=== PATIENT | female | born 1975 | race Hispanic/Latino ===

== ENCOUNTER 2018-06-10 22:57 | Emergency (ER) | payer MEDICARE ==
[2018-06-10 23:29] VITALS: BMI 32.8
--- NOTE | 2018-06-10 23:55 | OBHP ---
Datetime: 06/10/2018 23:48 IP Adm Impression: , intrauterine IP Admit Plan: Discharge home Admit Comment, IP Provider: @ 30.4 wks GA /co cramping on and off, denies any lof, vb, +Fm. pt reports urinary frequencybut has been constant throughtout the , no dysuira, urgency, blo od in urine. pt does reprots the episdoe started after straining for a bowel movement. pt dnies any f ever, chills, nause, ovmiting, cp, sob. pt dnies any recent travel, heavy lifiting, trauma, or recent interoucse. pt preorts her last viist with PMD was uncomplicated as iwht OB: x 2 FT largest was 8lb 6 ounes [employer]: Denies PMH: Hypoythoid, SVT PSH: Appendecotmy, Cholecystectomy, Hernia repair FHX: non contrbiur MEDS: Levothryoxine 100mcg daily, metroprolol just started last week by cardiolgist as per pot SHX: deneis etoh/tobaccod/rugs nKDA A/P @ 30.4 wks GA no evidence of labor f/u UA po hydration nst dc home f/u PMD Dr Perez 1 week, precaution given Pelvic Type - PN: Adequate Extremities - PN: Normal Abdomen - PN: Normal Back - PN: Normal Breast - PN: Not Done Lungs - PN: Normal Heart - PN: Normal Thyroid - PN: Not Done Neurologic - PN: Normal HEENT - PN: Normal General - PN: Normal FHR - Baseline A Provider: 135 Membranes, Provider: Intact Contraction Comments Provider: none Gestation - Est Wks by US: 30.4 EGA AdmitDate IP: 30.4 IP Chief Complaint: Uterine contractions NICHD Variability Prov Fetus A: Moderate 6-25bpm FHR Category Provider Fetus A: Category I NICHD Decel Fetus A IP Provider: None Dilatation, Provider: 0 Effacement, Provider: 0 Station, Provider: -3 Genitourinary Exam: Normal DTRs - PN: Normal
[2018-06-11 00:09] LABS: URINE BACTERIA OCC (<OCC); URINE BILIRUBIN NEGATIVE (NEGATIVE); URINE BLOOD 1+ (NEGATIVE); URINE CLARITY Hazy (Clear); URINE COLOR Yellow (YELLOW); URINE GLUCOSE (UA) NORMAL (Normal); URINE LEUKOCYTE ESTERASE TRACE Leu/uL (Negative); URINE PROTEIN NEGATIVE (NEGATIVE); URINE UROBILINOGEN NORMAL mg/dL (0.2-1.0)
[2018-06-11 04:48] VITALS: BP 117/68; PULSE 90; TEMP 98.2
== END 2018-06-11 00:30 | disposition home or self-care (01) ==
LOC: C.EROB 22:57
DX: O47.03 False labor before 37 completed weeks of gestation, third trimester (principal); Z3A.30 30 weeks gestation of pregnancy

== ENCOUNTER 2019-01-27 12:31 | Emergency (ER) | payer MEDICARE ==
[2019-01-27 12:31] VITALS: BMI 32.8
[2019-01-27 12:38] VITALS: O2SAT 97
[2019-01-27] MEDS ORDERED: Sodium Chloride 0.9% 1,000 ML IV ONE (12:55)
[2019-01-27] MEDS ORDERED: Sodium Chloride 0.9% 1,000 ML ONE (13:13)
--- NOTE | 2019-01-27 13:13 | C.PDOC ---
History Of Present Illness 43 year old male presents to ED with complaint of left-sided flank pain that began today. Patient describes the pain as sharp and constant. Patient has a past medical history of kidney stones. Patient denies fever and vomiting. Time Seen by Provider: 01/27/19 12:52 Chief Complaint (Nursing): Female Genitourinary History Per: Patient History/Exam Limitations: no limitations Onset/Duration Of Symptoms: Days (1), Persistent Current Symptoms Are (Timing): Still Present Severity: None Location Of Pain/Discomfort: Other (left flank) Radiation Of Pain To:: None Quality Of Discomfort: "Pain" Associated Symptoms: denies: Fever, Vomiting Exacerbating Factors: None Alleviating Factors: None Recent travel outside of the [place]: No Additional History Per: Patient Past Medical History Reviewed: Historical Data, Nursing Documentation, Vital Signs Vital Signs: Last Vital Signs Temp 98.7 F 01/27/19 12:36 Pulse 70 01/27/19 12:36 Resp 18 01/27/19 12:36 BP 136/78 01/27/19 12:36 Pulse Ox 97 01/27/19 12:36 - Medical History PMH: Anxiety, Bipolar Disorder, Depression, Hyperlipidemia, Hypothyroidism, Kidney Stones, Paranoia (pt states "people" are talking about her), Chronic Kidney Disease Comment Only: Hyperthyroidism (as per ER) Surgical History: Appendectomy, Cholecystectomy, Hernia Repair - [facility] INFLUENZA VACCINATION (09/22/13) OTHER GROUP THERAPY (05/28/13) PSYCHIAT DRUG THERAP NEC (05/28/13) VACCINATION NEC (09/22/13) Family History: States: Unknown Family Hx - Social History Hx Tobacco Use: No Hx Alcohol Use: No Hx Substance Use: No - Immunization History Hx Tetanus Toxoid Vaccination: No Hx Influenza Vaccination: No Hx Pneumococcal Vaccination: No Review Of Systems Constitutional: Negative for: Fever, Chills, Weakness Gastrointestinal: Positive for: Abdominal Pain (left flank). Negative for: Vomiting Genitourinary: Negative for: Dysuria, Hematuria, Vaginal Discharge, Vaginal Bleeding Neurological: Negative for: Weakness, Numbness, Dizziness Physical Exam - Physical Exam Appears: Well, No Acute Distress Skin: Normal Color, Warm, Dry Head: Atraumatic, Normacephalic Chest: Symmetrical, No Deformity Cardiovascular: Rhythm Regular, No Murmur Respiratory: No Accessory Muscle Use Gastrointestinal/Abdominal: Tenderness (left flank) Back: CVA Tenderness (left side) Neurological/Psych: Oriented x3, Normal Speech, Normal Cognition ED Course And Treatment - Laboratory Results Result Diagrams: 01/27/19 13:55 01/27/19 13:55 O2 Sat by Pulse Oximetry: 97 (in RA) - CT Scan/US Abdomen/Pelvis CT Other Rad Studies (CT/US): Interpreted By Me, Read By Radiologist CT/US Interpretation: IMPRESSION: Mild splenomegaly. Cholecystectomy. Urinary bladder incompletely distended which in part accounts for thick-walled appearance however correlation with urinalysis recommended to exclude cystitis. Punctate calcification upper pole left kidney with no evidence of hydronephrosis Medical Decision Making Medical Decision Making: Impression: 43 year old with left-sided flank pain Plan: Abdomen/ Pelvis CT ordered for patient Labs ordered with UA and urine culture Patient given IV fluids, Toradol IVP,and Zofran IVP 4:00PM: * Pain resolved and CT normal. Abdomen non tender. Patient denies any pain at th is time. Care instructions advised. Return if symptoms persist or worsen. Disposition Counseled Patient/Family Regarding: Studies Performed, Diagnosis, Need For Followup, Rx Given - Disposition Referrals: Maicol Lazo MD [Staff Provider] - Disposition: HOME/ ROUTINE Disposition Time: 16:00 Condition: STABLE Prescriptions: Ibuprofen [Motrin] 600 mg PO TID #20 tab Instructions: Flank Pain (DC) Forms: [facility] (Citizen [place]) - POA Present On Arrival: None - Clinical Impression Clinical Impression: Flank pain - Scribe Statement The provider has reviewed the documentation as recorded by the Scribe (Joanne Luna) All medical record entries made by the Scribe were at my direction and personally dictated by me. I have reviewed the chart and agree that the record accurately reflects my personal performance of the history, physical exam, medical decision making, and the department course for this patient. I have also personally directed, reviewed, and agree with the discharge instructions and disposition.
[2019-01-27 13:58] LABS: BASO % 0.7 % (0.0-2.0); EOS % 0.6 % (0.0-4.0); LYMPH # 1.7 K/uL (1.0-4.3); LYMPH % 23.3 % (20.0-40.0); MEAN CELL VOLUME 87.2 fL (81.0-99.0); MEAN CORPUSCULAR HEMOGLOBIN 28.9 pg (27.0-31.0); MEAN CORPUSCULAR HGB CONC 33.2 g/dL (33.0-37.0); MEAN PLATELET VOLUME 9.5 fL (7.2-11.7); MONO # 0.4 K/uL (0.0-0.8); MONO % 5.8 % (0.0-10.0); NEUT % 69.6 % (50.0-75.0); NRBC % 0.1 % (0.0-2.0); RBC 4.49 Mil/uL (3.80-5.20); RED CELL DISTRIBUTION WIDTH 12.9 % (11.5-14.5); WHITE BLOOD COUNT 7.1 K/uL (4.8-10.8)
[2019-01-27 14:10] LABS: SQUAMOUS EPITHIAL 6 /hpf (0-5); URINE BACTERIA RARE (<OCC); URINE BILIRUBIN NEGATIVE (NEGATIVE); URINE BLOOD NEGATIVE (NEGATIVE); URINE CLARITY Hazy (Clear); URINE COLOR Yellow (YELLOW); URINE GLUCOSE (UA) NORMAL (Normal); URINE LEUKOCYTE ESTERASE NEG Leu/uL (Negative); URINE PROTEIN NEGATIVE (NEGATIVE); URINE UROBILINOGEN NORMAL mg/dL (0.2-1.0)
[2019-01-27 14:13] LABS: ALB/GLOB RATIO 1.4 (1.0-2.1); ALBUMIN 4.7 g/dL (3.5-5.0); ALT/SGPT 7 U/L (9-52); AST/SGOT 15 U/L (14-36); BLOOD UREA NITROGEN 17 mg/dL (7-17); GFR NON-AFRICAN AMERICAN > 60; LIPASE 179 U/L (23-300)
--- NOTE | 2019-01-27 15:13 | CT ---
Date of service: 01/27/2019 PROCEDURE: CT abdomen pelvis HISTORY: Abdominal pain COMPARISON: Comparison made with prior CT scan abdomen pelvis 10/02/2017. TECHNIQUE: Contiguous axial images of the abdomen and pelvis performed without oral or intravenous contrast material. Additional 2D sagittal and coronal reformats generated. Reformats generated. Radiation dose: Total exam DLP = 952.9 mGy-cm. This CT exam was performed using one or more of the following dose reduction techniques: Automated exposure control, adjustment of the mA and/or kV according to patient size, and/or use of iterative reconstruction technique. FINDINGS: LOWER THORAX: Heart size within range of normal. No significant pericardial effusion. Tiny hiatal hernia. Minor linear scarring changes seen in the right middle lobe and lingular regions. LIVER: Liver is of borderline/mildly enlarged measuring nearly 19 cm in CC dimension. No obvious hepatic masses or collections identified on this noncontrast exam. GALLBLADDER AND BILE DUCTS: Cholecystectomy. PANCREAS: Unremarkable. No mass. No ductal dilatation. SPLEEN: Unremarkable. No splenomegaly. ADRENALS: No adrenal lesions are identified KIDNEYS AND URETERS: Kidneys demonstrate relatively symmetric size. There appears to be a punctate calcification upper pole collecting system left kidney. No evidence of hydronephrosis. BLADDER: Urinary bladder is incompletely distended which may in part account for slight thick-walled appearance. Correlation with urinalysis recommended to exclude cystitis. REPRODUCTIVE: Unremarkable as visualized APPENDIX: Appendix is not identified with complete certainty. No obvious inflammatory changes right lower quadrant of the abdomen BOWEL: There is a moderate amount of stool seen within the ascending and transverse as well as to a lesser degree proximal descending colon. Findings suggest mild constipation. No evidence of acute mechanical bowel obstruction. No definitive mural wall thickening. PERITONEUM: Unremarkable. No fluid collection. No free air. Umbilical hernia again noted. LYMPH NODES: Unremarkable. No enlarged lymph nodes. VASCULATURE: Unremarkable. No aortic aneurysm. No aortic atherosclerotic calcification or mural plaque present. BONES: Mild degenerative spondylosis of the lumbar spine. There appears to be OTHER FINDINGS: None. IMPRESSION: Mild splenomegaly. Cholecystectomy. Urinary bladder incompletely distended which in part accounts for thick-walled appearance however correlation with urinalysis recommended to exclude cystitis. Punctate calcification upper pole left kidney with no evidence of hydronephrosis
[2019-01-27] MEDS ORDERED: Morphine 4 MG/ML VIAL IV ONE (15:24)
[2019-01-27] MEDS ORDERED: Morphine 4 MG/ML VIAL ONE (15:29)
[2019-01-27 16:31] VITALS: BP 131/86; PULSE 60; RESP 18; TEMP 97.8
== END 2019-01-27 16:31 | disposition home or self-care (01) ==
LOC: C.ER 12:31
DX: R10.9 Unspecified abdominal pain (principal); E78.5 Hyperlipidemia, unspecified; E03.9 Hypothyroidism, unspecified; N18.9 Chronic kidney disease, unspecified
CPT/HCPCS: 74176; 80053; 81001; 83690; 85025; 87086; 96361; 96374; 96375; 99285; J1885; J2270; J2405; J7030